=== PATIENT | female | born 1985 | race Two or more races ===

== ENCOUNTER 2016-10-18 13:16 | Emergency (ER) | payer MEDICAID ==
--- NOTE | 2016-10-18 14:34 | ED Physician Chart ---
Chief Complaint/HPI - Patient Information Date Seen:: 10/18/16 Time Seen:: 13:45 Chief Complaint:: neck back and knee pain History of Present Illness:: location: neck, knee, back quality: sharp pain severity: mild, moderate duration: one day context: pt says that this morning while showering she slipped and fell in the shower and struck her neck directly on a sharp corner of a granite tile step. pt says her entire body weight fell onto the neck. she did not sustain loss of consciousness. no paralysis or paresthesia. no bowel or bladder incontinence. normal gait. pt appears comfortable on [facility]. reports sharp pain at neck, thoracic spine and right lateral knee. reports some bruising at right lateral knee. mod factors: none assoc s/s: none hx from pt. Allergies:: Allergies Allergy/AdvReac Type Severity Reaction Status Date / Time No Known Allergies Allergy Verified 10/18/16 13:34 Vitals:: Vital Signs - 8 hr 10/18/16 13:16 Temp 97.4 F HR 90 RR 16 BP 108/75 O2 Sat % 98 Historian:: Patient Review:: Nurse's Note Reviewed Review of Systems - Review of Systems General/Constitutional: No fever, No chills, No weight loss, No weakness, No diaphoresis, No edema, No loss of appetite Skin: No skin lesions, No rash, No bruising Head: No headache, No light-headedness Eyes: No loss of vision, No pain, No diplopia ENT: No earache, No nasal drainage, No sore throat, No tinnitus Neck: Neck pain, No swelling, No thyromegaly, No stiffness, No mass noted Cardio Vascular: No chest pain, No palpitations, No PND, No orthopnea, No edema Pulmonary: No SOB, No cough, No sputum, No wheezing GI: No nausea, No vomiting, No diarrhea, No pain, No melena, No hematochezia, No constipation, No hematemesis G/U: No dysuria, No frequency, No hematuria Musculoskeletal: Bone or joint pain (right lateral knee pain), Back pain, No muscle pain Endocrine: No polyuria, No polydipsia Psychiatric: No prior psych history, No depression, No anxiety, No suicidal ideation Hematopoietic: No bruising, No lymphadenopathy Allergic/Immuno: No urticaria, No angioedema Neurological: No syncope, No focal symptoms, No weakness, No paresthesia, No headache, No seizure, No dizziness, No confusion, No vertigo Past Medical History - Past Medical History Past Medical History: Other (abdominal incisional pain after ceasarean section one year ago) Family History: None Social History: Non Smoker, No Alcohol, No Drug Use, Surgical History: Psychiatricy History: None Medication: None Family Medical History - Family Member Grandmother Hx Family Hypertension: Yes Physical Exam - Physical Examination General/Constitutional: Awake, Well-developed, well-nourished, Alert, No distress, GCS 15, Non-toxic appearing, Ambulatory Head: Atraumatic Eyes: Lids, conjuctiva normal, PERRL, EOMI Skin: Nl inspection, No skin lesions, Well hydrated ENMT: External ears, nose nl, Nasal exam nl, Lips, teeth, gums nl Neck: Nontender (pt has some mild paraspinal muscle tenderness left side, no midline tenderness, no wound, no ecchymosis, no visible indication of trauma, entire posterior scalp is examined with RN at bed side. ), Full ROM w/o pain, No JVD, No nuchal rigidity, No mass, No stridor Respiratory: Nl effort/Exclusion, Clear to Auscultation, No Wheeze/Rhonchi/Rales Cardio Vascular: RRR, No murmur, gallop, rubs, NL S1 S2 GI: No tenderness/rebounding/guarding, Normal BS's, Nondistended : No CVA tenderness Extremities: No tenderness or effusion (right knee with ecchymosis at lateral knee, no instablity, no point tenderness on bone, no ligament laxity, normal popliteal pulse. ), Full ROM, normal strength in all extremities, No edema, Normal digits & nails Neuro/Psych: Alert/oriented, DTR's symmetric (bilateral normal patellar and achilles reflexes, normal sensation throughout. normal dorsalis pedis pulses and cap refill BLE), Normal sensory exam, Normal motor strength, Judgement/ insight normal, Mood normal, Normal gait, No focal deficits Misc: Normal back (during spine exam pt jumps off the table without any visible grimace during physician light touch exam of thoracic and lumbar spine. the spine is examined several times and patient identifies a different location of spine pain on exam at each exam. no consistency of location of pain is observed during exam. no midline step offs, no wound, no ecchymosis, no edema, no fluctuance. ), No paraspinal tenderness Labs/Radiology/EKG Results - Lab Results Results: Laboratory Tests 10/18/16 10/18/16 14:25 14:25 Urine Test NEGATIVE Urine Opiates Screen POSITIVE H Ur Barbiturates Screen NEGATIVE Ur Phencyclidine Scrn NEGATIVE Amphetamines Screen NEGATIVE U Methamphetamines Scrn NEGATIVE U Benzodiazepines Scrn POSITIVE H U Cocaine Metab Screen NEGATIVE U Cannabinoids Screen POSITIVE H Assessment - Assessment General Assessment: pt stable while in ER ED Septic Shock - . Is Septic Shock (SBP<90, OR Lactate>4 mmol\L) present?: No - <6hrs of presentation: Vital Signs: Vital Signs - 8 hr 10/18/16 13:16 Temp 97.4 F HR 90 RR 16 BP 108/75 O2 Sat % 98 Reassessment (Disposition) - Reassessment Reassessment:: ER course: pt stable while in ER. MDM: stable patient with report of fall in the shower this morning. however during examination patient moves neck and spine without visible indication of pain or discomfort. pt does have visible ecchymosis at right lateral knee but joint is stable with no point tenderness on bone. and no ligament laxity. spine films and CT do not show any acute fracture. findings appear consistent with right knee contusion, and then based on history cervico-lumbar strain - mild from ground level fall. will treat with DEWAYNE bandage for knee, non-narcotic limited script of ultram for neck and back pain. Reassessment Condition:: Improved - Diagnosis Diagnosis:: cervical spine strain thoraco lumbar strain right knee contusion - Aftercare/Follow up Instructions Aftercare/Follow-Up Instructions:: Refer to Discharge Instructions Medication Prescribed:: ultram 50mg one po q8 prn pain, D 12 pills. NR - Patient Disposition Discharge/Transfer:: Against Medical Advice (pt leaves AMA prior to completion of medical screening exam. pt says she feels fine and well enough to depart on her own without any further treatment. or prescriptions.) Condition at Disposition:: Stable, Improved
[2016-10-18] MEDS ORDERED: Sodium Chloride 0.9% 1,000 ML IV SCH (14:45)
[2016-10-18 15:54] LABS: AMPHETAMINE URINE NEGATIVE (NEGATIVE); BARBITURATES URINE NEGATIVE (NEGATIVE)
--- NOTE | 2016-10-19 10:52 | Diagnostic Imaging Report ---
Right knee 3 views Indication: Fall Comparison: none Findings: No evidence of an acute fracture or dislocation. No significant focal soft tissue swelling. No joint effusion. Impression: No evidence of an acute fracture. In the setting of trauma, if clinical symptoms persist and there is continued concern for an occult fracture, follow up exams in 5-7 days is suggested.
--- NOTE | 2016-10-19 11:09 | Diagnostic Imaging Report ---
Thoracolumbar spine 2 views Indication: Trauma Comparison: none Findings: Mild spinal scoliosis is noted. No evidence of an acute compression fracture or subluxation. Mild generalized degenerative changes are noted. Impression: No evidence of an acute compression fracture or subluxation if indicated CT examination may be obtained for further assessment. Mild generalized degenerative changes. In the setting of trauma, if clinical symptoms persist and there is continued concern for an occult fracture, follow up exams in 5-7 days is suggested.
--- NOTE | 2016-10-19 11:43 | Diagnostic Imaging Report ---
CT cervical spine without IV contrast HISTORY: Trauma COMPARISON: None Technique: Axial images were obtained from the skull base to the upper thoracic spine without IV contrast. Multiplanar reconstructions were made. Total DLP: 387, CTDI19.4 FINDINGS: Images of the spine cervical spine obtained without contrast demonstrate no evidence of a fracture or subluxation. The disc spaces are preserved. There is reversal of the cervical lordosis. No prevertebral soft tissue swelling. No focal soft tissue abnormalities. The lung apices are clear. IMPRESSION: No evidence of a fracture or subluxation. Reversal of the cervical lordosis which may be due to positioning versus muscle spasm.
== END 2016-10-18 16:40 | disposition left against medical advice (07) ==
LOC: ER 13:16
DX: S16.1XXA Strain of muscle, fascia and tendon at neck level, initial encounter (principal); S29.012A Strain of muscle and tendon of back wall of thorax, initial encounter; S39.012A Strain of muscle, fascia and tendon of lower back, initial encounter; S80.01XA Contusion of right knee, initial encounter; W01.198A Fall on same level from slipping, tripping and stumbling with subsequent striking against other object, initial encounter; Y93.E1 Activity, personal bathing and showering; Y92.89 Other specified places as the place of occurrence of the external cause; Y99.8 Other external cause status
CPT/HCPCS: 99285; 96372 ×2; 72080; 73564; 72125; 80300; 81025; J1885; 73562-TC-RT; J7030